=== PATIENT | male | born 1965 | race Caucasian/White ===

== ENCOUNTER 2021-07-22 19:22 | Emergency (ER) | payer SELFPAY ==
[~2021-07-22] VITALS: Ht 172.7 cm; Wt 162.0 kg
--- NOTE | 2021-07-22 19:27 | PHYS DOC ---
General Adult HPI: HPI: ".. I was going down steps out side and slipped. Rt hurt my knee.. and elbow..... Rt hand is really tender.. I knocked the skin off several places... the head phones I was wearing came off and scraped my forehead..." Patient is a 56 year old male who presents with above hx and complaits of trip and fall. Patient has multiple areas of contusions and abrasions. Patient has been amatory since the accident. No loss of consciousness. Patient is unsure of his last tetanus shot. Pt. follows with Dr. Maldonado. Review of Systems: Review of Systems: Constitutional: Denies fever or chills Eyes: Denies change in visual acuity HENT: Denies nasal congestion or sore throat Respiratory: Denies cough or shortness of breath Cardiovascular: Denies chest pain or edema GI: Denies abdominal pain, nausea, vomiting, bloody stools or diarrhea : Denies dysuria Musculoskeletal: Rt knee and Rt hand joint pain Integument: Denies rash Neurologic: Denies headache, focal weakness or sensory changes Endocrine: Denies polyuria or polydipsia Lymphatic: Denies swollen glands Psychiatric: Denies depression or anxiety Family History: Family History: Noncontributory presentation Current Medications: Current Meds: See nursing for home meds Allergies: Allergies: Allergies Coded Allergies Type Severity Reaction Last Updated Verified Unable to Assess 05/09/14 No Physical Exam: PE: Constitutional: Moderate acute distress, non-toxic appearance. [] HENT: Normocephalic, atraumatic, bilateral external ears normal, oropharynx moist, no oral exudates, nose normal. [] Eyes: PERRLA, EOMI, conjunctiva normal, no discharge. [] Neck: Normal range of motion, no tenderness, supple, no stridor. [] Cardiovascular:Heart rate regular rhythm, no murmur [] Lungs & Thorax: Bilateral breath sounds clear to auscultation [] Abdomen: Bowel sounds normal, soft, no tenderness, no masses, no pulsatile masses. Obese Skin: Warm, dry, no erythema, no rash. Abrasions and contusions Back: No tenderness, no CVA tenderness. [] Extremities: Right knee and hand tenderness, no cyanosis, no clubbing, ROM intact, right knee and hand edema. [] Neurologic: Alert and oriented X 3, normal motor function, normal sensory function, no focal deficits noted. [] Psychologic: Affect anxious , judgement normal, mood normal. [] EKG: EKG: [] Radiology/Procedures: Radiology/Procedures: [address] [address] IMAGING REPORT Signed PATIENT: NORMA CAMEJO: [id number] : 1965 LOCATION: ER AGE: 56 SEX: M EXAM STATUS: DEP ER ORD. PHYSICIAN: ERICA SHEETS MD REASON: fall PROCEDURE: HAND RIGHT 3V Exam: Right hand 3 views INDICATION: Fall, hand pain TECHNIQUE: Frontal, lateral and oblique views of the right hand Comparisons: None FINDINGS: Bone mineralization is normal. There is a mildly displaced fracture involving the base of the fifth metacarpal. Mild overlying soft tissue swelling. Joint spaces are well-maintained. Bone mineralization is normal. IMPRESSION: Mildly displaced fracture at the base of the fifth metacarpal. Electronically signed by: Lowell Hammer MD (07/22/2021 10:18 PM) [facility] DICTATED AND SIGNED BY: LOWELL HAMMER MD DATE: 07/22/212216 CC: ERICA SHEETS MD; LASHAE MALDONADO DO ~MTH0 0 [][address] [address] IMAGING REPORT Signed PATIENT: NORMA CAMEJO: [id number] : 1965 LOCATION: ER AGE: 56 SEX: M EXAM STATUS: DEP ER ORD. PHYSICIAN: ERICA SHEETS MD REASON: fall PROCEDURE: KNEE RIGHT 4V 4 view right knee radiographs 07/22/2021 CLINICAL HISTORY: Fall with injury to the right knee. AP, oblique, lateral and sunrise radiographs of the right knee were obtained. There is diffuse osteopenia the visualized bony structures. No fracture or dislocation right knee is seen. Moderate to severe degenerative changes are seen involving all 3 compartments of the right knee. These consist of joint compartment narrowing, subchondral sclerosis and associated osteophyte formation. IMPRESSION: Degenerative changes are seen involving the right knee as discussed above. No acute osseous abnormality is seen. Electronically signed by: Joel Chung MD (07/22/2021 11:19 PM) [id number] DICTATED AND SIGNED BY: JOEL CHUNG MD DATE: 07/22/21 2401 CC: ERICA SHEETS MD; LASHAE MALDONADO DO ~MTH0 0 Heart Score: C/O Chest Pain: N/A Risk Factors: Risk Factors: DM, Current or recent (<one month) smoker, HTN, HLP, family history of CAD, obesity. Risk Scores: Score 0 - 3: 2.5% MACE over next 6 weeks - Discharge Home Score 4 - 6: 20.3% MACE over next 6 weeks - Admit for Clinical Observation Score 7 - 10: 72.7% MACE over next 6 weeks - Early Invasive Strategies Course & Med Decision Making: Course & Med Decision Making Pertinent Labs and Imaging studies reviewed. (See chart for details) Procedure note -all the wounds were cleaned with peroxide and Betadine. Right hand did require use of 11 blade scalpel today got embedded dirt. Dressing applied. Patient wear splint. Elevate hand. Follow-up primary care. Wear Vladimir wrap. Follow-up with orthopedics. Appears to have a fracture at the base of fifth metacarpal right hand. Tylenol and ibuprofen for pain. Polysporin to abrasions 4 times a day. Return if any concerns. Impression: 1. Trip and fall 2. Multiple contusions and abrasions 3. Right knee sprain 4. Right hand fifth metacarpal sprain/fracture 5. Morbidly obese [] Dragon Disclaimer: Dragon Disclaimer: This electronic medical record was generated, in whole or in part, using a voice recognition dictation system. Departure Departure: Referrals: LASHAE MALDONADO DO (PCP) ERICA SHEETS MD Jul 22, 2021 19:27
[2021-07-22 19:32] VITALS: BP 147/77
[2021-07-22] MEDS ORDERED: DIPHTH,PERTUSS(ACELL),TET TOX 0.5 ML DISP.SYRIN. VAX IM ONE (21:15)
--- NOTE | 2021-07-22 22:21 | RAD ---
Exam: Right hand 3 views INDICATION: Fall, hand pain TECHNIQUE: Frontal, lateral and oblique views of the right hand Comparisons: None FINDINGS: Bone mineralization is normal. There is a mildly displaced fracture involving the base of the fifth m etacarpal. Mild overlying soft tissue swelling. Joint spaces are well-maintained. Bone mineralization is normal. IMPRESSION: Mildly displaced fracture at the base of the fifth metacarpal. Electronically signed by: Lowell Sanchez MD (07/22/2021 10:18 PM) K[facility]I
--- NOTE | 2021-07-22 23:22 | RAD ---
4 view right knee radiographs 07/22/2021 CLINICAL HISTORY: Fall with injury to the right knee. AP, oblique, lateral and sunrise radiographs of the right knee were obtained. There is diffuse osteop enia the visualized bony structures. No fracture or dislocation right knee is seen. Moderate to sever e degenerative changes are seen involving all 3 compartments of the right knee. These consist of join t compartment narrowing, subchondral sclerosis and associated osteophyte formation. IMPRESSION: Degenerative changes are seen involving the right knee as discussed above. No acute osseo us abnormality is seen. Electronically signed by: Joel Chung MD (07/22/2021 11:19 PM) [id number]
== END 2021-07-22 22:10 | disposition home or self-care (01) ==
LOC: ER 19:22
DX: S83.91XA Sprain of unspecified site of right knee, initial encounter (principal); S80.01XA Contusion of right knee, initial encounter; E66.01 Morbid (severe) obesity due to excess calories; Z68.43 Body mass index [BMI] 50.0-59.9, adult; W01.0XXA Fall on same level from slipping, tripping and stumbling without subsequent striking against object, initial encounter; Y93.89 Activity, other specified; Y92.89 Other specified places as the place of occurrence of the external cause; Y99.8 Other external cause status
CPT/HCPCS: 10120; 73130; 73564; 90471; 90715; 99284